=== PATIENT | male | born 1945 | race Caucasian/White ===

== ENCOUNTER 2022-07-28 14:03 | Emergency (ER) | payer MEDICARE, BC, SELFPAY ==
[2022-07-28] VITALS (8 sets, daily range): BP systolic 120–160; BP diastolic 70–85; PULSE 81–98; RESP 11–26; TEMP 37.2; O2SAT 95–96
--- NOTE | 2022-07-28 14:14 | DI.RAD.S_ITS ---
PROCEDURE: XR CHEST 1V INDICATIONS: chest pain TECHNIQUE: One view of the chest was acquired. COMPARISON: None. FINDINGS: Surgical changes and devices: Right shoulder anchor. Lungs and pleura: Lungs are clear. No pleural effusions or pneumothorax. Mediastinum: Mediastinal contours appear normal. Heart size is normal. Bones and chest wall: No suspicious bony lesions. Overlying soft tissues appear unremarkable. IMPRESSION: No acute cardiopulmonary abnormality. Dictated by: Jeremias Marquez M.D. on 07/28/2022 at 14:57 Approved by: Jeremias Marquez M.D. on 07/28/2022 at 14:57
--- NOTE | 2022-07-28 14:26 | ED.ARRPALP ---
HPI - Arrhythmia/Palpitations General Chief Complaint: Arrhythmia/Palpitations Stated Complaint: xtory of Afib heart rate jumps at everything Time Seen by Provider: 07/28/22 14:19 Source: patient Mode of arrival: Ambulatory Limitations: no limitations History of Present Illness HPI narrative: Patient is a 76-year-old male. Had a recent diagnosis of atrial fibrillation. He is visiting here from [place]. He states the atrial fibrillation was because he over ate. Was having abdominal distention. He leaned back in his chair in order to stretch his abdomen and passed out. This caused him to go into atrial fibrillation. He seen at a hospital in [place]. He spontaneously converted after rate control with diltiazem. No cardioversion was performed. He had an echocardiogram which he states was told was unremarkable. He was started on Norvasc/amlodipine. He has been taking this as directed. Is also started on anticoagulation. He was cleared to come on his vacation to the local area. Since that time he states he has been having palpitations specifically with exertion. No chest pain. No shortness of breath. No further syncopal episodes. He states that after his heart rate elevates it does take a while for to come down. He states that the palpitations are causing him some distress. Related Data Previous Rx's Medication Instructions Recorded hydroxyzine HCl 25 mg tablet 25 mg PO TID PRN anxiety #21 tabs 07/28/22 Review of Systems Review of Systems ROS Unobtainable: All systems reviewed & are unremarkable except as noted in HPI and below Patient History Medical History Atrial fibrillation Hypertension Social History marital status: lives independently: Yes Exam Initial Vital Signs Initial Vital Signs: Vital Signs Temperature 99.0 F 07/28/22 14:11 Pulse Rate 98 H 07/28/22 14:11 Respiratory Rate 20 07/28/22 14:11 Blood Pressure 160/83 H 07/28/22 14:11 Pulse Oximetry 96 07/28/22 14:11 Oxygen Delivery Method 07/28/22 14:11 HENMT Head: normal to inspection and normocephalic Resp Effort & Inspection: normal respiratory effort Auscultation: clear to auscultation bilaterally Cardio Rate: regular rate Rhythm: regular rhythm GI Inspection: normal to inspection Palpation: soft and No tender Skin General: no rashes or lesions noted Lesions: no lesions Neuro General: patient alert, patient awake, patient oriented x3 and moves all extremities Cognition: normal cognition Speech: speech normal Extrem General: normal to inspection and capillary refill normal Psych Appearance: grossly normal and well kempt Course Orders Ordered: ED Orders 07/28/22 14:14 XR chest 1V Stat EKG-12 Lead Stat 07/28/22 14:27 Complete Blood Count AUTO DIFF Stat Comprehensive Metabolic Panel Stat Lipase Stat Magnesium Stat Troponin & CK Cardiac Panel Stat Vital Signs Vital signs: Vital Signs - 8 hr 07/28/22 14:11 07/28/22 14:21 07/28/22 14:22 Temperature 99.0 F Pulse Rate 98 H 93 H Respiratory Rate 20 21 Blood Pressure 160/83 H 160/85 H Pulse Oximetry 96 Oxygen Delivery Method Room Air 07/28/22 14:22 07/28/22 14:28 07/28/22 14:28 Temperature Pulse Rate 96 H 88 Respiratory Rate 26 H 17 Blood Pressure 142/78 H Pulse Oximetry 95 Oxygen Delivery Method 07/28/22 14:30 07/28/22 14:30 07/28/22 15:00 Temperature Pulse Rate 85 Respiratory Rate 11 L Blood Pressure 130/73 127/72 Pulse Oximetry 96 Oxygen Delivery Method 07/28/22 15:00 07/28/22 15:30 07/28/22 15:30 Temperature Pulse Rate 81 81 Respiratory Rate 14 17 Blood Pressure 120/70 Pulse Oximetry 96 95 Oxygen Delivery Method 07/28/22 16:00 07/28/22 16:00 Temperature Pulse Rate 84 Respiratory Rate 19 Blood Pressure 137/75 Pulse Oximetry 96 Oxygen Delivery Method MDM - Arrhythmia/Palpitations Lab Data Attestation: I reviewed the patient's lab results. Result diagrams: 07/28/22 14:27 07/28/22 14:27 Labs: Lab Results 07/28/22 07/28/22 Range/Units 14:27 14:27 WBC 9.3 (4.5-11.0) X10^3/uL RBC 4.92 (4.5-5.9) X10^6/uL Hgb 15.1 (13.5-17.5) g/dL Hct 43.6 (41-53) % MCV 88.7 (80-100) fL MCH 30.7 (26-34) PG MCHC 34.7 (30-36) % RDW 13.7 (11.6-14.8) % Plt Count 247 (150-400) X10^3/uL Neut % (Auto) 69.1 (50-75) % Lymph % (Auto) 19.9 L (25-40) % [place] % (Auto) 10.0 (3-14) % Eos % (Auto) 0.6 L (2-4) % Baso % (Auto) 0.4 (0-2) % Neut # (Auto) 6400 (9016-8172) /uL Lymph # (Auto) 1900 (2886-6421) /uL [place] # (Auto) 900 (0-900) /uL Eos # (Auto) 100 (0-450) /uL Baso # (Auto) 0 (0-100) /uL Sodium 136 L (137-145) mmol/L Potassium 4.3 (3.4-5.1) mmol/L Chloride 102 (98-107) mmol/L Carbon Dioxide 22 (22-32) mmol/L BUN 23 H (9-20) mg/dL Creatinine 1.77 H (0.66-1.25) mg/dL Estimated GFR 39 L (>60) mL/min BUN/Creatinine Ratio 13.0 (6-22) Glucose 122 H (80-110) mg/dL Calcium 9.2 (8.4-10.2) mg/dL Magnesium 2.3 (1.6-2.3) mg/dL Total Bilirubin 0.8 (0.2-1.3) mg/dL AST 30 (17-59) IU/L ALT 25 (<50) IU/L Alkaline Phosphatase 63 (38-126) U/L Total Creatine Kinase 79 (55-170) U/L CK-MB (CK-2) TNP CK-MB (CK-2) Rel Index TNP Troponin I < 0.012 (0.01-0.034) ng/mL Total Protein 7.9 (6.3-8.2) g/dL Albumin 4.4 (3.5-5.0) g/dL Globulin 3.5 (1.7-4.1) g/dL Albumin/Globulin Ratio 1.3 (1.0-2.8) Lipase 99 (23-300) U/L ECG Data Attestation: I personally reviewed and interpreted this ECG as follows: Interpretation: Sinus rhythm Ventricular rate 95 Left axis deviation Normal QRS Nonspecific ST T wave changes MDM Narrative Medical decision making narrative: Patient is not tachycardic and is not in atrial fibrillation. His blood pressure during his time here actually leveled out at 120s over 70s. Had a discussion with him regarding his symptoms. I told him that he potentially is becoming tachycardic with exertion because he is going in AFib that is resolving on its own. I informed him of the limitations that we have on evaluating this as right now he is not in atrial fibrillation. We also discussed that potentially he is becoming tachycardic because he is very anxious about having another episode of AFib that is exacerbating an already slightly elevated heart rate because of his exertion. He admits that this potentially could be the issue. He does have Valium that he can take. We discussed that he could potentially do this more often to see if that does not help his symptoms. We discussed my hesitancy of starting a new rate reduction medication because he just started on amlodipine and my concern would be is that we drop his blood pressure too much that he become hypotensive. He stated that his doctor told him that he could try Benadryl instead of the Valium. We discussed using hydroxyzine and he was given a prescription for this. We will hold on further workup for now and discharge patient home. He was given very strict return precautions. He expressed understanding and agreement. Discharge Plan Departure Patient Disposition: Home Clinical Impression: Palpitations Instructions: Arrhythmias Activity Restrictions/Additional Instructions: I recommend that you continue to take all of your medications as directed to include the Norvasc and also the Valium. You were given a prescription for hydroxyzine. This medication can help with anxiety and also help with the fast heart rate/palpitations. Return to the emergency department for any new or worsening symptoms. Prescriptions: New hydroxyzine HCl 25 mg tablet 25 mg PO TID PRN (Reason: anxiety) Qty: 21 0RF Visit Report Forms: Patient Portal/API
[2022-07-28 14:53] LABS: Add Manual Diff / Slide Review NO; Basophils Absolute Auto 0 /uL (0-100); Basophils Percent Auto 0.4 % (0-2); Eosinophils Absolute Auto 100 /uL (0-450); Eosinophils Percent Auto 0.6 % (2-4); Hematocrit 43.6 % (41-53); Hemoglobin 15.1 g/dL (13.5-17.5); Lymphocytes Absolute Auto 1900 /uL (1100-4500); Lymphocytes Percent Auto 19.9 % (25-40); Mean Corpuscular HGB Conc 34.7 % (30-36); Mean Corpuscular Hemoglobin 30.7 PG (26-34); Mean Corpuscular Volume 88.7 fL (80-100); Monocytes Absolute Auto 900 /uL (0-900); Neutrophils Absolute Auto 6400 /uL (1500-7000); Neutrophils Percent Auto 69.1 % (50-75); Platelet Count 247 X10^3/uL (150-400); Red Blood Cell Count 4.92 X10^6/uL (4.5-5.9); Red Cell Distribution Width 13.7 % (11.6-14.8); White Blood Cell Count 9.3 X10^3/uL (4.5-11.0)
[2022-07-28 14:55] LABS: Alanine Aminotransferase 25 IU/L (<50); Albumin 4.4 g/dL (3.5-5.0); Albumin Globulin Ratio 1.3 (1.0-2.8); Alkaline Phosphatase 63 U/L (38-126); Aspartate Aminotransferase 30 IU/L (17-59); Bilirubin Total 0.8 mg/dL (0.2-1.3); Blood Urea Nitrogen 23 mg/dL (9-20); Calcium 9.2 mg/dL (8.4-10.2); Carbon Dioxide 22 mmol/L (22-32); Chloride 102 mmol/L (98-107); Creatine Kinase 79 U/L (55-170); Estimated Glomerular Filt Rate 39 mL/min (>60); Globulin 3.5 g/dL (1.7-4.1); Glucose 122 mg/dL (80-110); HEMOLYSIS 26 (0-50); Lipase 99 U/L (23-300); Magnesium 2.3 mg/dL (1.6-2.3); Potassium 4.3 mmol/L (3.4-5.1); Sodium 136 mmol/L (137-145); Total Protein 7.9 g/dL (6.3-8.2)
[2022-07-28 15:06] LABS: Troponin I < 0.012 ng/mL (0.01-0.034)
== END 2022-07-28 16:19 | disposition home or self-care (01) ==
PROVIDERS: Emergency Provider Emergency Medicine
DX: R00.2 Palpitations (principal); R07.9 Chest pain, unspecified
CPT/HCPCS: 36415; 71045; 80053; 82550; 83690; 83735; 84484; 85025; 93005; 93010; 99284